=== PATIENT | female | born 1985 | race Caucasian/White ===

== ENCOUNTER 2016-08-10 03:55 | Emergency (ER) | payer SELFPAY ==
[~2016-08-10] VITALS: Ht 165.1 cm; Wt 75.4 kg
[2016-08-10] MEDS ORDERED: ACETAMINOPHEN 500 MG TABLET ONE (04:46)
[2016-08-10] MEDS ORDERED: ONDANSETRON ODT 4 MG ONE (04:47)
[2016-08-10] MEDS ORDERED: ONDANSETRON ODT 4 MG PO ONE (05:00)
[2016-08-10] MEDS ORDERED: ACETAMINOPHEN 500 MG TABLET PO ONE (05:00)
[2016-08-10 05:24] LABS: BLOOD UREA NITROGEN 4 mg/dL (7-18)
[2016-08-10 05:43] LABS: ASPARTATE AMINO TRANSFERASE 17 U/L (15-37)
[2016-08-10 05:43] LABS: DAU SCREEN DISCLAIMER
[2016-08-10 06:10] VITALS: BP 104/56
[2016-08-10] MEDS ORDERED: HYDR50TA13 PO (06:10)
[2016-08-10] MEDS ORDERED: LORA1TAB PO (06:10)
[2016-08-10] MEDS ORDERED: LIDOCAINE 1%, 20ML ONE (08:08)
== END 2016-08-10 09:34 | disposition home or self-care (01) ==
LOC: ED 06:29
DX: O26.892 Other specified pregnancy related conditions, second trimester (principal); L02.411 Cutaneous abscess of right axilla; F10.129 Alcohol abuse with intoxication, unspecified; O21.0 Mild hyperemesis gravidarum
CPT/HCPCS: 10060; 36415; 76815; 80053; 80307; 81001; 84702; 85025; 86901; 99285; Q0162